=== PATIENT | female | born 1980 ===

== ENCOUNTER 2021-04-24 08:00 | Inpatient (IN) | payer SELFPAY ==
[2021-04-26] MEDS ORDERED: Sodium Chloride 0.9% 2.5 ML Syringe FLUSH PRN ×2 (05:51→09:41)
[2021-04-26] MEDS ORDERED: Sodium Chloride 0.9% 10 ML Syringe FLUSH PRN ×2 (05:51→09:41)
[2021-04-26] MEDS ORDERED: Sodium Chloride 0.9% 20 ML SDV IV PRN (05:51)
[2021-04-26] MEDS ORDERED: Citric Acid/Sodium Citrate Solution 30 ML Cup PO ONE (05:51)
[2021-04-26] MEDS ORDERED: Oxytocin/0.9 % Sodium Chloride 30 UNIT/500 ML BAG IV SCH (06:00)
[2021-04-26] MEDS ORDERED: Lactated Ringers 1,000 ML IV SCH ×2 (06:00→09:45)
[2021-04-26] MEDS ORDERED: fentaNYL 100 MCG/2 ML SDV ONE (07:32)
--- NOTE | 2021-04-26 07:52 | PCM.PREANE ---
Preanesthetic Assessment - Anesthesia/Transfusion/Family Hx Anesthesia History: Prior Anesthesia Without Reaction Family History of Anesthesia Reaction: No Transfusion History: No Prior Transfusion(s) - Review of Systems General: No Symptoms, Other (Hypothyroid) Pulmonary: No Symptoms, Other (Quit smoking in July. Chronic sinus drainage/congestion) Gastrointestinal: No Symptoms, Other (GERD) Neurological: No Symptoms Other: Reports: None (Hep B in 2001) - Physical Assessment NPO Status Date: 04/26/21 NPO Status Time: 00:00 Height: 1.65 m Weight: 65.317 kg ASA Class: 2 Mental Status: Alert & Oriented x3 Airway Class: Mallampati = 2 Dentition: Reports: Normal Dentition Thyro-Mental Finger Breadths: 3 Mouth Opening Finger Breadths: 3 ROM/Head Extension: Full Lungs: Clear to Auscultation, Normal Respiratory Effort Cardiovascular: Regular Rate, Regular Rhythm - Lab Values: Laboratory Last Values WBC 7.95 K/uL (4.0-11.0) 04/26/21 05:40 RBC 3.95 M/uL (4.30-5.90) L 04/26/21 05:40 Hgb 12.9 g/dL (12.0-16.0) 04/26/21 05:40 Hct 37.7 % (36.0-46.0) 04/26/21 05:40 MCV 95.4 fL (80.0-98.0) 04/26/21 05:40 MCH 32.7 pg (27.0-32.0) H 04/26/21 05:40 MCHC 34.2 g/dL (31.0-37.0) 04/26/21 05:40 RDW Std Deviation 46.6 fl (28.0-62.0) 04/26/21 05:40 RDW Coeff of Bobbi 13 % (11.0-15.0) 04/26/21 05:40 Plt Count 239 K/uL (150-400) 04/26/21 05:40 MPV 10.10 fL (7.40-12.00) 04/26/21 05:40 Nucleated RBC % 0.0 /100WBC 04/26/21 05:40 Nucleated RBCs # 0 K/uL 04/26/21 05:40 Blood Type B POSITIVE 04/26/21 05:40 Antibody Screen NEGATIVE 04/26/21 05:40 - Allergies Allergies/Adverse Reactions: Allergies Allergy/AdvReac Type Severity Reaction Status Date / Time No Known Allergies Allergy Verified 04/26/21 06:06 - Blood Blood Available: Yes Product(s) Available: PRBC (Type and screen) - Anesthesia Plan Pre-Op Medication Ordered: None - Acknowledgements Anesthesia Type Planned: General Anesthesia, Spinal Pt an Appropriate Candidate for the Planned Anesthesia: Yes Alternatives and Risks of Anesthesia Discussed w Pt/Guardian: Yes Pt/Guardian Understands and Agrees with Anesthesia Plan: Yes PreAnesthesia Questionnaire HEENT History: Reports: None Cardiovascular History: Reports: Other (See Below) Other Cardiovascular History: "low blood pressure" Respiratory History: Reports: None Gastrointestinal History: Reports: Other (See Below) Other Gastrointestinal History: heartburn with Genitourinary History: Reports: None DIALYSIS TECHNICIAN History: Reports: Musculoskeletal History: Reports: None Neurological History: Reports: None Psychiatric History: Reports: None Endocrine/Metabolic History: Reports: Hypothyroidism Hematologic History: Reports: None Immunologic History: Reports: None Oncologic (Cancer) History: Reports: None Dermatologic History: Reports: None - Infectious Disease History Infectious Disease History: Reports: Chicken Pox - Past Surgical History Head Surgeries/Procedures: Reports: None HEENT Surgical History: Reports: None Cardiovascular Surgical History: Reports: None Respiratory Surgical History: Reports: None GI Surgical History: Reports: Appendectomy Female Surgical History: Reports: Section Endocrine Surgical History: Reports: None Neurological Surgical History: Reports: None Musculoskeletal Surgical History: Reports: None Oncologic Surgical History: Reports: None Dermatological Surgical History: Reports: None - SUBSTANCE USE Tobacco Use Status *Q: Former Tobacco User Tobacco Use Within Last Twelve Months: Cigarettes - HOME MEDS Home Medications: Home Meds Calcium Carbonate [Tums] 1 tab.chew CHEW ASDIRECTED PRN 04/23/21 [History] Cholecalciferol (Vitamin D3) [Vitamin D3] 5,000 units PO DAILY 04/23/21 [Hi story] Levothyroxine Sodium [Levoxyl] 50 mcg PO DAILY 04/23/21 [History] Pnv No.95/Ferrous Fum/Folic AC [ Vitamin Tablet] 1 tab PO DAILY 04/23/21 [History] Amoxicillin/Clavulanate K [Augmentin 500-125 MG] 1 tab PO Q8H 04/26/21 [History] Omeprazole Magnesium [Prilosec Otc] 20 mg PO DAILY 04/26/21 [History] - CURRENT (IN HOUSE) MEDS Current Meds: Current Medications Oxytocin/Sodium Chloride (Oxytocin 30 Unit In Ns 0.9% 500 Ml Premix) 30 unit in 500 mls @ 250 mls/hr IV TITRATE [facility] Cefazolin Sodium/Dextrose 2 gm (/ Premix) 50 mls @ 100 mls/hr IV ONETIME ONE Stop: 04/26/21 08:29 Lactated Ringer's (Ringers, Lactated) 1,000 mls @ 500 mls/hr IV BOLUS [facility] Last Admin: 04/26/21 07:13 Dose: 500 mls/hr Documented by: Sodium Chloride (Sodium Chloride 0.9% 10 Ml Syringe) 10 ml FLUSH ASDIRECTED PRN PRN Reason: Keep Vein Open Sodium Chloride (Sodium Chloride 0.9% 2.5 Ml Syringe) 2.5 ml FLUSH ASDIRECTED PRN PRN Reason: Keep Vein Open Sodium Chloride (Sodium Chloride 0.9% 20 Ml Sdv) 10 ml IV ASDIRECTED PRN PRN Reason: IV Use Discontinued Medications Citric Acid/Sodium Citrate (Citric Acid/Sodium Citrate Solution 30 Ml Cup) 30 ml PO ONETIME ONE Stop: 04/26/21 05:52 Last Admin: 04/26/21 07:13 Dose: 30 ml Documented by: Fentanyl (Fentanyl 100 Mcg/2 Ml Sdv) Confirm Administered Dose 100 mcg .ROUTE .STK-MED ONE Stop: 04/26/21 07:33
[2021-04-26] MEDS ORDERED: ceFAZolin 2 GM in Premix Bag 1 BAG IV ONE (08:00)
[2021-04-26] MEDS ORDERED: Ondansetron 4 MG/2 ML SDV ONE (08:21)
[2021-04-26] MEDS ORDERED: Famotidine 20 MG/2 ML SDV ONE (08:29)
[2021-04-26] MEDS ORDERED: Oxytocin 10 Units/1 ML SDV ONE (08:54)
[2021-04-26] MEDS ORDERED: Methylergonovine 0.2 MG/1 ML Amp IM PRN (09:41)
[2021-04-26] MEDS ORDERED: Acetaminophen/oxyCODONE 325-5 MG Tab PO PRN (09:41)
[2021-04-26] MEDS ORDERED: Bisacodyl 10 MG Supp RECTAL PRN (09:41)
[2021-04-26] MEDS ORDERED: Lanolin 100% Cream 7 GM Tube TOP PRN (09:41)
[2021-04-26] MEDS ORDERED: Tranexamic Acid 1,000 MG in Sodium Chloride 0.9% 100 ML IV PRN (09:41)
[2021-04-26] MEDS ORDERED: diphenhydrAMINE 50 MG/ML SDV IVPUSH PRN (09:41)
[2021-04-26] MEDS ORDERED: Ondansetron 4 MG/2 ML SDV IVPUSH PRN (09:41)
[2021-04-26] MEDS ORDERED: Misoprostol 200 MCG Tab RECTAL PRN (09:41)
[2021-04-26] MEDS: Ketorolac 30 MG/ML SDV IVPUSH SCH ×3 (10:35→21:40)
--- NOTE | 2021-04-26 10:46 | PCM.POSTAN ---
POST ANESTHESIA ASSESSMENT - MENTAL STATUS Mental Status: Alert, Oriented - RESPIRATORY Respiratory Status: Respiratory Rate WNL, Airway Patent, O2 Saturation Stable - CARDIOVASCULAR CV Status: Pulse Rate WNL, Blood Pressure Stable - GASTROINTESTINAL GI Status: No Symptoms - POST OP HYDRATION Hydration Status: Adequate & Stable
--- NOTE | 2021-04-26 10:46 | PCM48HPAN ---
Post Anesthesia Note - EVALUATION WITHIN 48HRS OF ANESTHETIC Vital Signs in Normal Range: Yes Patient Participated in Evaluation: Yes Respiratory Function Stable: Yes Airway Patent: Yes Cardiovascular Function Stable: Yes Hydration Status Stable: Yes Pain Control Satisfactory: Yes Nausea and Vomiting Control Satisfactory: Yes Mental Status Recovered: Yes
[2021-04-26] MEDS: Acetaminophen/oxyCODONE 325-5 MG Tab PO PRN ×2 (13:58→21:19)
[2021-04-26] MEDS ORDERED: guaiFENesin 600 MG Tab.ER PO ONE (15:19)
[2021-04-26] MEDS: Sodium Chloride 0.65% Nasal Spray 45 ML Bottle NAS SCH ×2 (15:56→21:39)
[2021-04-26] MEDS: Docusate Sodium 100 MG Cap PO SCH (21:19)
[2021-04-26] MEDS: Amoxicillin/Clavulanate K 875-125 MG Tab PO SCH (21:39)
[2021-04-27] MEDS: Sodium Chloride 0.65% Nasal Spray 45 ML Bottle NAS SCH ×7 (04:00→23:46)
[2021-04-27] MEDS: Ketorolac 30 MG/ML SDV IVPUSH SCH ×2 (04:20→09:52)
[2021-04-27] MEDS: Acetaminophen/oxyCODONE 325-5 MG Tab PO PRN ×4 (04:21→23:45)
--- NOTE | 2021-04-27 05:24 | OR ---
SURGEON: Miah Logan MD DATE OF PROCEDURE: 04/26/2021 INDICATION FOR PROCEDURE: 41-year-old, G7, P 2-0-4-2, at 39 weeks and 2 days, presenting for scheduled repeat . The patient has history of two prior C-sections completed in [facility], and she declined trial of labor and desires to have repeat C- section. was complicated by advanced maternal age. She had serial growth ultrasounds with normal growth. She had weekly testing starting at 37 weeks that was reassuring. She has a history of hypothyroidism, which has been stable during this . She is GBS negative. PREOPERATIVE DIAGNOSES: 1. Montanez intrauterine at 39 weeks and 2 days. 2. Prior section x2. 3. Advanced maternal age. 4. Hypothyroidism. POSTOPERATIVE DIAGNOSES: 1. Montanez intrauterine at 39 weeks and 2 days. 2. Prior section x2. 3. Advanced maternal age. 4. Hypothyroidism. PROCEDURE PERFORMED: Repeat low transverse section. ANESTHESIOLOGIST: John Hylton CRNA ANESTHESIA: Spinal. FINDINGS: Thick scar tissue between the bladder and the lower uterine segment that was very difficult to take down. Some omental adhesions along the fundus and right adnexa. Viable female . Weight of 7lb7oz. score of 8 and 9. ESTIMATED BLOOD LOSS: 500 mL. DESCRIPTION OF PROCEDURE: The risks of the procedure were discussed with the patient including risks of bleeding; infection; DVTs; injury to surrounding organs including bladder, bowel, and ureter. The patient expressed understanding. Consent signed. The patient was brought to the operating room. She received 2 g of Ancef IV and SCDs. Spinal anesthesia was placed. Zaldivar catheter was inserted. The abdomen was prepped with chlorhexidine in a sterile fashion, then draped and tested for anesthesia. The spinal was adequate. A Pfannenstiel incision was made with a scalpel and an elliptical incision was made around the previous incision and the scar removed. There were adhesions due to the previous that was carefully dissected. The fascia was cleared of subcutaneous tissue. The fascia was incised in the midline and extended laterally with curved Spence scissors. Amy clamps were placed on the superior fascial edge. The rectus muscles were carefully by blunt dissection and using Spence scissors. The rectus muscles appeared to be torn from the previous C-sections. The rectus muscles were also in the inferior fascial edge in similar process. The peritoneum was identified and the bladder was noted to be very high and adhered to the anterior uterus. The peritoneum was entered superiorly away from the bladder. It was dissected with Metzenbaum scissors and extended bluntly. The bladder blade was inserted and the bladder flap was made with Metzenbaum scissors. Bladder was carefully dissected away from the lower uterine segment. It was difficult to completely take down below the lower uterine segment due to dense adhesions. Therefore, decision was made to make a transverse incision above the site of dissection. The uterus was incised using the scalpel and extended bluntly. Clear amniotic fluid was noted. The 's head was in occiput posterior position. It was rotated to an occiput anterior position so it can be flexed and brought to the hysterotomy. Fundal pressure was applied and the head delivered. The shoulder and bodies were delivered without difficulty. The umbilical cord was clamped and cut after 30 seconds and no longer pulsating. The baby was pink, moving all extremities, and crying immediately after delivery. The baby was handed off to nursery staff. The cord gases were obtained. The placenta was removed with gentle traction on the umbilical cord. The endometrial cavity was cleaned with a lap to remove all remaining membranes. Allis clamps were used to grasp the angles and lower edges of the incision. There was a small extension along the right side of the hysterotomy. The uterine incision was closed in two layers, the first layer was running locking suture using 0 Monocryl, the second layer with vertical imbricated fashion with 0 Vicryl. There was a small area that was bleeding near the midline and a [id number] suture was placed for hemostasis. The uterus was firm. Paracolic gutters were cleared of any clots. The incision was irrigated and checked again for hemostasis, careful to make sure that the lateral extension was no longer bleeding. The bladder was also carefully examined and did not appear to have any injury. The Zaldivar catheter showed clear urine. The bladder peritoneum was reapproximated with 0 Vicryl in running fashion. The peritoneum was grasped by hemostats and brought to the midline. It was reapproximated with 2-0 Vicryl along with the rectus muscles. The rectus muscles were carefully examined and bleeding areas cauterized. The fascia was closed using a 0 Vicryl in running fashion. The subcutaneous tissue was irrigated and bleeding areas cauterized. The subcutaneous layer was brought together with 2-0 plain. The skin was closed in subcuticular fashion using 3-0 Monocryl on a Armando needle. A Telfa and ABD dressing was placed over the incision. The patient was stable and transferred to recovery room. LISY MARTIN /[id number] MTDD
[2021-04-27] MEDS: Levothyroxine 50 MCG Tab PO SCH (06:50)
--- NOTE | 2021-04-27 08:40 | PCM.PNPP ---
- General Info Date of Service: 04/27/21 Functional Status: Reports: Pain Controlled, Tolerating Diet, Ambulating, Other (Gutierrez removed this AM, has not voided yet. Had a lot of congestion yesterday, improved today.) - Review of Systems General: Reports: No Symptoms HEENT: Reports: No Symptoms Pulmonary: Reports: No Symptoms Cardiovascular: Reports: No Symptoms Gastrointestinal: Reports: No Symptoms Genitourinary: Reports: No Symptoms Musculoskeletal: Reports: No Symptoms Skin: Reports: No Symptoms Neurological: Reports: No Symptoms Psychiatric: Reports: No Symptoms - Patient Data Vital Signs - Most Recent: Last Vital Signs Temp 36.7 C 04/27/21 08:00 Pulse 80 04/27/21 08:00 Resp 18 04/27/21 08:00 BP 102/59 L 04/27/21 08:00 Pulse Ox 96 04/27/21 08:00 Weight - Most Recent: 144 lb I&O - Last 24 Hours: Intake & Output 04/26/21 04/27/21 04/27/21 22:59 06:59 14:59 Intake Total 625 Output Total 1950 1150 Balance -1325 -1150 Lab Results - Last 24 Hours: Laboratory Results - last 24 hr 04/27/21 Range/Units 05:24 Hgb 11.3 L (12.0-16.0) g/dL Hct 33.5 L (36.0-46.0) % Med Orders - Current: Current Medications Amoxicillin/Clavulanate Potassium (Amoxicillin/Clavulanate K 875-125 Mg Tab) 1 tab PO Q12HR [facility] Last Admin: 04/26/21 21:39 Dose: 1 tab Documented by: Bacitracin (Bacitracin Ophth Oint 3.5 Gm Tube) 1 gm EYELF TID [facility] Last Admin: 04/27/21 06:29 Dose: 1 applic Documented by: Bisacodyl (Bisacodyl 10 Mg Supp) 10 mg RECTAL ONETIME PRN PRN Reason: Constipation Diphenhydramine HCl (Diphenhydramine 50 Mg/Ml Sdv) 25 mg IVPUSH Q6H PRN PRN Reason: Itching or Nausea Last Admin: 04/26/21 15:07 Dose: 25 mg Documented by: Docusate Sodium (Docusate Sodium 100 Mg Cap) 100 mg PO BID [facility] Last Admin: 04/26/21 21:19 Dose: 100 mg Documented by: Emollient Ointment (Lanolin 100% Cream 7 Gm Tube) 0 gm TOP ASDIRECTED PRN PRN Reason: Sore Nipples Last Admin: 04/26/21 13:59 Dose: 1 applic Documented by: Oxytocin/Sodium Chloride (Oxytocin 30 Unit In Ns 0.9% 500 Ml Premix) 30 unit in 500 mls @ 250 mls/hr IV TITRATE [facility] Lactated Ringer's (Ringers, Lactated) 1,000 mls @ 500 mls/hr IV BOLUS [facility] Last Admin: 04/26/21 07:13 Dose: 500 mls/hr Documented by: Lactated Ringer's (Ringers, Lactated) 1,000 mls @ 125 mls/hr IV ASDIRECTED [facility] Tranexamic Acid 1,000 mg/ (Sodium Chloride) 110 mls @ 660 mls/hr IV ONETIME PRN PRN Reason: Bleeding Ibuprofen (Ibuprofen 800 Mg Tab) 800 mg PO Q8H PRN PRN Reason: Cramping Ketorolac Tromethamine (Ketorolac 30 Mg/Ml Sdv) 30 mg IVPUSH Q6H [facility] Stop: 04/27/21 09:46 Last Admin: 04/27/21 04:20 Dose: 30 mg Documented by: Levothyroxine Sodium (Levothyroxine 50 Mcg Tab) 50 mcg PO ACBREAKFAST [facility] Last Admin: 04/27/21 06:50 Dose: 50 mcg Documented by: Methylergonovine Maleate (Methylergonovine 0.2 Mg/1 Ml Amp) 0.2 mg IM ONETIME PRN PRN Reason: Excessive Vaginal Bleeding Misoprostol (Misoprostol 200 Mcg Tab) 1,000 mcg RECTAL ONETIME PRN PRN Reason: excessive bleeding Ondansetron HCl (Ondansetron 4 Mg/2 Ml Sdv) 4 mg IVPUSH Q4H PRN PRN Reason: Nausea/Vomiting Oxycodone/Acetaminophen (Acetaminophen/Oxycodone 325-5 Mg Tab) 1 tab PO Q4H PRN PRN Reason: Pain (severe 7-10) Last Admin: 04/27/21 04:21 Dose: 1 tab Documented by: Oxycodone/Acetaminophen (Acetaminophen/Oxycodone 325-5 Mg Tab) 2 tab PO Q4H PRN PRN Reason: Pain (severe 7-10) Sodium Chloride (Sodium Chloride 0.9% 10 Ml Syringe) 10 ml FLUSH ASDIRECTED PRN PRN Reason: Keep Vein Open Sodium Chloride (Sodium Chloride 0.9% 2.5 Ml Syringe) 2.5 ml FLUSH ASDIRECTED PRN PRN Reason: Keep Vein Open Sodium Chloride (Sodium Chloride 0.9% 20 Ml Sdv) 10 ml IV ASDIRECTED PRN PRN Reason: IV Use Sodium Chloride (Sodium Chloride 0.9% 10 Ml Syringe) 10 ml FLUSH ASDIRECTED PRN PRN Reason: Keep Vein Open Sodium Chloride (Sodium Chloride 0.9% 2.5 Ml Syringe) 2.5 ml FLUSH ASDIRECTED PRN PRN Reason: Keep Vein Open Sodium Chloride (Sodium Chloride 0.65% Nasal [place] 45 Ml Bottle) 1 ml PIPE Q4H [facility] Last Admin: 04/27/21 07:36 Dose: Not Given Documented by: Discontinued Medications Citric Acid/Sodium Citrate (Citric Acid/Sodium Citrate Solution 30 Ml Cup) 30 ml PO ONETIME ONE Stop: 04/26/21 05:52 Last Admin: 04/26/21 07:13 Dose: 30 ml Documented by: Famotidine (Famotidine 20 Mg/2 Ml Sdv) 20 mg .ROUTE .STK-MED ONE Stop: 04/26/21 08:30 Fentanyl (Fentanyl 100 Mcg/2 Ml Sdv) Confirm Administered Dose 100 mcg .ROUTE .STK-MED ONE Stop: 04/26/21 07:33 Guaifenesin (Guaifenesin 600 Mg Tab.Er) 600 mg PO ONETIME ONE Stop: 04/26/21 15:20 Last Admin: 04/26/21 16:00 Dose: 600 mg Documented by: Cefazolin Sodium/Dextrose 2 gm (/ Premix) 50 mls @ 100 mls/hr IV ONETIME ONE Stop: 04/26/21 08:29 Last Admin: 04/26/21 07:56 Dose: 100 mls/hr Documented by: Acetaminophen (Ofirmev 1000 Mg/100 Ml) Confirm Administered Dose 100 mls @ as directed .ROUTE .STK-MED ONE Stop: 04/26/21 08:14 Cefazolin Sodium/Dextrose (Ancef) Confirm Administered Dose 50 mls @ as directed .ROUTE .STK-MED ONE Stop: 04/26/21 15:02 Ondansetron HCl (Ondansetron 4 Mg/2 Ml Sdv) Confirm Administered Dose 4 mg .ROUTE .STK-MED ONE Stop: 04/26/21 08:22 Oxytocin (Oxytocin 10 Units/1 Ml Sdv) Confirm Administered Dose 30 unit .ROUTE .STK-MED ONE Stop: 04/26/21 08:55 - Interaction Disposition, : [place] to Nursery Support Person: - Recovery Exam Fundal Tone: Firm Fundal Level: 1 Fingerbreadths Below Umbilicus Fundal Placement: Midline Lochia Amount: None Lochia Color: Rubra/Red Perineum Description: Edematous Episiotomy/Laceration: None Bladder Status: Indwelling Catheter in Place Urinary Elimination: Indwelling Catheter - Exam General: Alert, Oriented, Cooperative, No Acute Distress HEENT: Pupils Equal, Pupils Reactive, EOMI Neck: Supple, Trachea Midline, Lymphadenopathy Lungs: Clear to Auscultation, Normal Respiratory Effort Cardiovascular: Regular Rate, Regular Rhythm, No Murmurs GI/Abdominal Exam: Normal Bowel Sounds, Soft, Non-Tender, No Distention Extremities: Normal Inspection, Normal Range of Motion, Non-Tender, No Pedal Edema Skin: Warm, Dry, Intact Wound/Incisions: Dressing Dry and Intact Neurological: No New Focal Deficit Psy/Mental Status: Alert, Normal Affect, Normal Mood - Problem List Review Problem List Initiated/Reviewed/Updated: Yes - My Orders Last 24 Hours: My Active Orders 04/26/21 08:00 Insert Urinary Catheter [OM.PC] Routine 04/26/21 09:30 Notify Provider Vital Signs [RC] PRN 04/26/21 09:41 Intake and Output [RC] Q4H Notify Provider Intake and Out [RC] ASDIRECTED Notify Provider Vital Signs [RC] ASDIRECTED Urinary Catheter Removal [RC] PER UNIT ROUTINE Acetaminophen/oxyCODONE [Percocet 325-5 MG] 1 tab PO Q4H PRN Acetaminophen/oxyCODONE [Percocet 325-5 MG] 2 tab PO Q4H PRN Lanolin [Lansinoh HPA] See Dose Instructions TOP ASDIRECTED PRN Methylergonovine [Methergine] 0.2 mg IM ONETIME PRN Ondansetron [Zofran] 4 mg IVPUSH Q4H PRN Sodium Chloride 0.9% [Saline Flush] 10 ml FLUSH ASDIRECTED PRN Sodium Chloride 0.9% [Saline Flush] 2.5 ml FLUSH ASDIRECTED PRN Tranexamic Acid [Cyklokapron] 1,000 mg Sodium Chloride 0.9% [Normal Saline AdvBag] 100 ml IV ONETIME bisacodyL [Dulcolax] 10 mg RECTAL ONETIME PRN diphenhydrAMINE [Benadryl] 25 mg IVPUSH Q6H PRN miSOPROStoL [Cytotec] 1,000 mcg RECTAL ONETIME PRN Abdominal Binder [OM.PC] Routine Saline Lock Insert [OM.PC] Routine 04/26/21 09:42 Patient Status [ADT] Routine Ambulate [RC] PER UNIT ROUTINE Communication Order [RC] PER UNIT ROUTINE Communication Order [RC] PER UNIT ROUTINE Communication Order [RC] Per Unit Routine May Shower [RC] ASDIRECTED RT Incentive Spirometry [RC] Q2HWA Assess Lochia [WOMSER] Per Unit Routine Assess Uterine Involution [WOMSER] Per Unit Routine Breast Pump [WOMSER] Per Unit Routine Peripheral IV Discontinue [OM.PC] Routine Sequential Compression Device [OM.PC] Per Unit Routine 04/26/21 09:45 Ketorolac [Toradol] 30 mg IVPUSH Q6H Lactated Ringers [Ringers, Lactated] 1,000 ml IV ASDIRECTED 04/26/21 Lunch Regular Diet [DIET] 04/26/21 14:00 Bacitracin [Bacitracin Ophth Oint] 1 gm EYELF TID 04/26/21 15:30 Sodium Chloride 0.65% [[place] Nasal Vona] 1 ml PIPE Q4H 04/26/21 21:00 Amoxicillin/Clavulanate K [Augmentin 875 MG/125 MG] 1 tab PO Q12HR Docusate Sodium [Colace] 100 mg PO BID 04/27/21 07:30 Levothyroxine [Synthroid] 50 mcg PO ACBREAKFAST 04/27/21 16:00 Ibuprofen [Motrin] 800 mg PO Q8H PRN - Assessment Assessment:: 41 yo POD1 s/p repeat , stable and recovering well. - Plan Plan:: - vital stable - gutierrez removed this AM, good UO - ambulating, tolerating PO - pain controlled - bleeding light, Hgb 11.3 this AM Continue inpatient, plan for discharge home tomorrow. Reviewed care instructions
[2021-04-27] MEDS: Docusate Sodium 100 MG Cap PO SCH ×2 (09:36→21:11)
[2021-04-27] MEDS: Amoxicillin/Clavulanate K 875-125 MG Tab PO SCH ×2 (09:36→21:11)
[2021-04-27] MEDS ORDERED: Ibuprofen 800 MG Tab PO PRN (16:00)
[2021-04-28] MEDS: Sodium Chloride 0.65% Nasal Spray 45 ML Bottle NAS SCH ×2 (04:07→06:39)
[2021-04-28] MEDS: Acetaminophen/oxyCODONE 325-5 MG Tab PO PRN (06:29)
[2021-04-28] MEDS: Levothyroxine 50 MCG Tab PO SCH (06:30)
[2021-04-28] MEDS: Amoxicillin/Clavulanate K 875-125 MG Tab PO SCH (08:27)
[2021-04-28] MEDS: Docusate Sodium 100 MG Cap PO SCH (08:27)
--- NOTE | 2021-04-28 10:18 | PCM.PNPP ---
- General Info Date of Service: 04/28/21 Subjective Update: Patient seen at bedside , she denies any complains, she has good pain control , voiding and tolerating regular diet Functional Status: Reports: Pain Controlled, Tolerating Diet, Ambulating, Urinating - Review of Systems General: Reports: No Symptoms HEENT: Reports: No Symptoms Pulmonary: Reports: No Symptoms Cardiovascular: Reports: No Symptoms Gastrointestinal: Reports: No Symptoms Genitourinary: Reports: No Symptoms Musculoskeletal: Reports: No Symptoms Skin: Reports: No Symptoms Neurological: Reports: No Symptoms Psychiatric: Reports: No Symptoms - General Info Date of Service: 04/28/21 - Patient Data Vital Signs - Most Recent: Last Vital Signs Temp 36.2 C 04/28/21 08:30 Pulse 84 04/28/21 08:30 Resp 15 04/28/21 08:30 BP 116/62 04/28/21 08:30 Pulse Ox 96 04/28/21 08:30 Weight - Most Recent: 65.317 kg Lab Results - Last 24 Hours: Laboratory Results - last 24 hr 04/26/21 Range/Units 05:40 RPR Non-Reac (Non-Reac) Med Orders - Current: Current Medications Amoxicillin/Clavulanate Potassium (Amoxicillin/Clavulanate K 875-125 Mg Tab) 1 tab PO Q12HR [facility] Last Admin: 04/28/21 08:27 Dose: 1 tab Documented by: Bacitracin (Bacitracin Ophth Oint 3.5 Gm Tube) 1 gm EYELF TID [facility] Last Admin: 04/28/21 06:30 Dose: 1 applic Documented by: Bisacodyl (Bisacodyl 10 Mg Supp) 10 mg RECTAL ONETIME PRN PRN Reason: Constipation Diphenhydramine HCl (Diphenhydramine 50 Mg/Ml Sdv) 25 mg IVPUSH Q6H PRN PRN Reason: Itching or Nausea Last Admin: 04/26/21 15:07 Dose: 25 mg Documented by: Docusate Sodium (Docusate Sodium 100 Mg Cap) 100 mg PO BID [facility] Last Admin: 04/28/21 08:27 Dose: 100 mg Documented by: Emollient Ointment (Lanolin 100% Cream 7 Gm Tube) 0 gm TOP ASDIRECTED PRN PRN Reason: Sore Nipples Last Admin: 04/26/21 13:59 Dose: 1 applic Documented by: Oxytocin/Sodium Chloride (Oxytocin 30 Unit In Ns 0.9% 500 Ml Premix) 30 unit in 500 mls @ 250 mls/hr IV TITRATE [facility] Lactated Ringer's (Ringers, Lactated) 1,000 mls @ 500 mls/hr IV BOLUS [facility] Last Admin: 04/26/21 07:13 Dose: 500 mls/hr Documented by: Lactated Ringer's (Ringers, Lactated) 1,000 mls @ 125 mls/hr IV ASDIRECTED [facility] Tranexamic Acid 1,000 mg/ (Sodium Chloride) 110 mls @ 660 mls/hr IV ONETIME PRN PRN Reason: Bleeding Ibuprofen (Ibuprofen 800 Mg Tab) 800 mg PO Q8H PRN PRN Reason: Cramping Last Admin: 04/27/21 21:16 Dose: 800 mg Documented by: Levothyroxine Sodium (Levothyroxine 50 Mcg Tab) 50 mcg PO ACBREAKFAST [facility] Last Admin: 04/28/21 06:30 Dose: 50 mcg Documented by: Methylergonovine Maleate (Methylergonovine 0.2 Mg/1 Ml Amp) 0.2 mg IM ONETIME PRN PRN Reason: Excessive Vaginal Bleeding Misoprostol (Misoprostol 200 Mcg Tab) 1,000 mcg RECTAL ONETIME PRN PRN Reason: excessive bleeding Ondansetron HCl (Ondansetron 4 Mg/2 Ml Sdv) 4 mg IVPUSH Q4H PRN PRN Reason: Nausea/Vomiting Oxycodone/Acetaminophen (Acetaminophen/Oxycodone 325-5 Mg Tab) 1 tab PO Q4H PRN PRN Reason: Pain (severe 7-10) Last Admin: 04/28/21 06:29 Dose: 1 tab Documented by: Oxycodone/Acetaminophen (Acetaminophen/Oxycodone 325-5 Mg Tab) 2 tab PO Q4H PRN PRN Reason: Pain (severe 7-10) Sodium Chloride (Sodium Chloride 0.9% 10 Ml Syringe) 10 ml FLUSH ASDIRECTED PRN PRN Reason: Keep Vein Open Sodium Chloride (Sodium Chloride 0.9% 2.5 Ml Syringe) 2.5 ml FLUSH ASDIRECTED PRN PRN Reason: Keep Vein Open Sodium Chloride (Sodium Chloride 0.9% 20 Ml Sdv) 10 ml IV ASDIRECTED PRN PRN Reason: IV Use Sodium Chloride (Sodium Chloride 0.9% 10 Ml Syringe) 10 ml FLUSH ASDIRECTED PRN PRN Reason: Keep Vein Open Sodium Chloride (Sodium Chloride 0.9% 2.5 Ml Syringe) 2.5 ml FLUSH ASDIRECTED PRN PRN Reason: Keep Vein Open Sodium Chloride (Sodium Chloride 0.65% Nasal [place] 45 Ml Bottle) 1 ml PIPE Q4H [facility] Last Admin: 04/28/21 06:39 Dose: Not Given Documented by: Discontinued Medications Citric Acid/Sodium Citrate (Citric Acid/Sodium Citrate Solution 30 Ml Cup) 30 ml PO ONETIME ONE Stop: 04/26/21 05:52 Last Admin: 04/26/21 07:13 Dose: 30 ml Documented by: Famotidine (Famotidine 20 Mg/2 Ml Sdv) 20 mg .ROUTE .STK-MED ONE Stop: 04/26/21 08:30 Fentanyl (Fentanyl 100 Mcg/2 Ml Sdv) Confirm Administered Dose 100 mcg .ROUTE .STK-MED ONE Stop: 04/26/21 07:33 Guaifenesin (Guaifenesin 600 Mg Tab.Er) 600 mg PO ONETIME ONE Stop: 04/26/21 15:20 Last Admin: 04/26/21 16:00 Dose: 600 mg Documented by: Cefazolin Sodium/Dextrose 2 gm (/ Premix) 50 mls @ 100 mls/hr IV ONETIME ONE Stop: 04/26/21 08:29 Last Admin: 04/26/21 07:56 Dose: 100 mls/hr Documented by: Acetaminophen (Ofirmev 1000 Mg/100 Ml) Confirm Administered Dose 100 mls @ as directed .ROUTE .STK-MED ONE Stop: 04/26/21 08:14 Cefazolin Sodium/Dextrose (Ancef) Confirm Administered Dose 50 mls @ as directed .ROUTE .STK-MED ONE Stop: 04/26/21 15:02 Last Admin: 04/27/21 20:31 Dose: Not Given Documented by: Ketorolac Tromethamine (Ketorolac 30 Mg/Ml Sdv) 30 mg IVPUSH Q6H [facility] Stop: 04/27/21 09:46 Last Admin: 04/27/21 09:52 Dose: 30 mg Documented by: Ondansetron HCl (Ondansetron 4 Mg/2 Ml Sdv) Confirm Administered Dose 4 mg .ROUTE .STK-MED ONE Stop: 04/26/21 08:22 Oxytocin (Oxytocin 10 Units/1 Ml Sdv) Confirm Administered Dose 30 unit .ROUTE .STK-MED ONE Stop: 04/26/21 08:55 - Interaction Infant Disposition, : to Nursery Support Person: - Recovery Exam Fundal Tone: Firm Fundal Level: 1 Fingerbreadths Below Umbilicus Fundal Placement: Midline Lochia Amount: Scant Lochia Color: Rubra/Red Perineum Description: Intact, Minimal Bruising/Swelling Episiotomy/Laceration: None Bladder Status: Voiding Urinary Elimination: Voided Other Urinary Elimination, : due to void - Exam General: Alert Neck: Supple Lungs: Clear to Auscultation Cardiovascular: Regular Rate, Regular Rhythm GI/Abdominal Exam: Normal Bowel Sounds Wound/Incisions: Dressing Dry and Intact Neurological: No New Focal Deficit (pfannestiel skin incision c/d/i) Psy/Mental Status: Alert - Problem List & Annotations (1) delivery delivered SNOMED Code(s): 874877827 Code(s): O82 - ENCOUNTER FOR DELIVERY WITHOUT INDICATION Status: Acute Current Visit: Yes - Problem List Review Problem List Initiated/Reviewed/Updated: Yes - Assessment Assessment:: 41 yo POD1 s/p repeat , PPD 2 stable and recovering well. - Plan Plan:: Discharge instructions given Reviewed care instructions Discharge home
== END 2021-04-28 11:15 | disposition home or self-care (01) | DRG 788 ==
LOC: MW.OB 04-26 05:39
PROVIDERS: ADMIT Obstetrics & Gynecology; ATTEND Obstetrics & Gynecology
PROC: 10D00Z1 Extraction of Products of Conception, Low, Open Approach (ICD-10-PCS; principal; 2021-04-26)
DX: O34.211 Maternal care for low transverse scar from previous cesarean delivery (principal); Z37.0 Single live birth; Z3A.38 38 weeks gestation of pregnancy; O99.284 Endocrine, nutritional and metabolic diseases complicating childbirth; E03.9 Hypothyroidism, unspecified
CPT/HCPCS: 36415; 85014; 85018; 85027; 86592; 86850; 86900; 86901; A9270-GY; J0131; J0690; J1200; J1885; J2405; J2590; J3010; J3490; J7120